=== PATIENT | female | born 1995 | race Caucasian/White ===

== ENCOUNTER 2019-02-23 07:01 | Emergency (ER) | payer OTHER ==
[~2019-02-23] VITALS: Ht 165.1 cm; Wt 73.5 kg
[2019-02-23 07:05] VITALS: Ht 165.1 cm; Wt 73.5 kg
[2019-02-23 08:16] VITALS: BP 135/97
== END 2019-02-23 08:17 | disposition home or self-care (01) ==
LOC: ED 07:01
DX: J03.90 Acute tonsillitis, unspecified (principal); Z88.0 Allergy status to penicillin
CPT/HCPCS: J7512